=== PATIENT | female | born 1960 | race Caucasian/White ===

== ENCOUNTER 2020-04-23 17:31 | Emergency (ER) | payer OTHER | END 2020-04-23 19:47 | disposition home or self-care (01) | LOC: FER 17:31 | DX: R05 Cough (principal); R06.02 Shortness of breath; R50.9 Fever, unspecified; R07.9 Chest pain, unspecified; Z86.16 Personal history of COVID-19 | CPT/HCPCS: 36600; 71250; 82803; 93005 ==